=== PATIENT | female | born 1930 | race Caucasian/White ===

== ENCOUNTER 2016-11-24 15:31 | Inpatient (IN) | payer MEDICARE ==
[~2016-11-24] VITALS: Ht 157.5 cm; Wt 89.0 kg
[~2016-11-24 15:31] MED LIST: ASCO-96 PO; ASPI325T17 PO; BENA40TA2 PO; BUDE10.22 INH; CALC1CAP8 PO; CEFU500T PO; ESCI20TA PO; FLUT16SP NS; HYDR25TA6 PO; LEVO112T4 PO; MAGN400T7 PO; METH1POW PO; METH1TAB21 PO; MULT-257 PO; OMEG1CAP94 PO; ONDA4TAB13 SL; OXYC5TAB2 PO; PANT40TA5 PO; POTA20TA6 PO; POTASSIUM PO; ROPI0.5T2 PO; ROPI2TAB4 PO; SIMV20TA3 PO; SUVO10TA PEG; TIOT18CA INH; potassium PO
[2016-11-24] MEDS ORDERED: SODIUM CHLORIDE FLUSH 10ML SYR IVF ONE (16:00)
[2016-11-24 16:08] LABS: HEMATOCRIT 43.5 % (34.6-47.8); HEMOGLOBIN 14.7 g/dL (11.7-16.4); WHITE BLOOD COUNT 8.8 x10^3/uL (3.4-10)
[2016-11-24 16:19] LABS: ASPARTATE AMINO TRANSFERASE 17 U/L (15-37); BLOOD UREA NITROGEN 19 mg/dL (7-18)
[2016-11-24 16:24] LABS: IS PT STATUS REG ER OR PRE ER? YES
[2016-11-24] MEDS ORDERED: ASPI-496 PO (16:50)
[2016-11-24] MEDS ORDERED: NITROGLYCERIN 0.4 MG/SPRAY SL PRN (17:00)
[2016-11-24] MEDS ORDERED: NITROGLYCERIN 0.4 MG BOTTLE (25 TABS) SL PRN (17:00)
[2016-11-24] MEDS ORDERED: MECLIZINE CHEWABLE 25 MG TAB PO PRN (17:30)
[2016-11-24] MEDS ORDERED: SODIUM CHLORIDE 0.9% 1,000 ML IV SCH (17:30)
[2016-11-24] MEDS ORDERED: MORPHINE SULFATE 4 MG/ML, 1ML IVPush PRN (17:30)
[2016-11-24] MEDS ORDERED: ONDANSETRON ODT 4 MG PO PRN (17:30)
[2016-11-24] MEDS ORDERED: ONDANSETRON 2MG/ML, 2ML IVPush PRN (17:30)
[2016-11-24 18:45] VITALS: BP 160/80
[2016-11-24] MEDS ORDERED: FLUTICASONE/VILANTEROL 100-25MCG/INH INH SCH (21:00)
[2016-11-24] MEDS ORDERED: ROPINIROLE 1MG TABLET PO SCH (21:00)
[2016-11-24] MEDS ORDERED: SIMVASTATIN 20 MG TABLET PO SCH (21:00)
[2016-11-24] MEDS ORDERED: BELSOMRA 10 MG PO PRN (21:30)
[2016-11-24] MEDS: CALCIUM/VITAMIN D3 250-125 TABLET PO SCH (22:27)
[2016-11-24] MEDS: MAGNESIUM OXIDE 400 MG TABLET PO SCH (22:27)
[2016-11-24] MEDS: ASCORBIC ACID 500 MG TABLET PO SCH (22:28)
[2016-11-25 01:09] VITALS: BP 127/74
[2016-11-25] MEDS ORDERED: ASPIRIN 81 MG TABLET EC PO SCH (06:00)
[2016-11-25 06:03] LABS: HEMOGLOBIN 13.4 g/dL (11.7-16.4); WHITE BLOOD COUNT 6.7 x10^3/uL (3.4-10)
[2016-11-25 06:15] LABS: ASPARTATE AMINO TRANSFERASE 15 U/L (15-37); BLOOD UREA NITROGEN 19 mg/dL (7-18)
[2016-11-25] MEDS: MAGNESIUM OXIDE 400 MG TABLET PO SCH (08:37)
[2016-11-25] MEDS: ASCORBIC ACID 500 MG TABLET PO SCH (08:37)
[2016-11-25 08:38] LABS: IS PT STATUS REG ER OR PRE ER? NO
[2016-11-25] MEDS: CALCIUM/VITAMIN D3 250-125 TABLET PO SCH (08:38)
[2016-11-25 08:46] VITALS: BP 185/76
[2016-11-25] MEDS ORDERED: METHENAMINE HIPPURATE 1 GM TABLET PO SCH (09:00)
[2016-11-25] MEDS ORDERED: MULTIVITAMIN 1 TABLET PO SCH (09:00)
[2016-11-25] MEDS ORDERED: LEVOTHYROXINE 112 MCG TABLET PO SCH (09:00)
[2016-11-25] MEDS ORDERED: BENAZEPRIL 20 MG TABLET PO SCH (09:00)
[2016-11-25] MEDS ORDERED: CITALOPRAM 20 MG TABLET PO SCH (09:00)
[2016-11-25] MEDS ORDERED: REGADENOSON 0.4 MG/5 ML SYRINGE ONE (10:07)
[2016-11-25 14:50] VITALS: BP 167/79
[2016-11-25] MEDS ORDERED: LEVO100T PO (15:49)
== END 2016-11-25 18:00 | disposition home or self-care (01) | DRG 313 ==
LOC: ED 16:26 → EDIP 16:27 → ED 17:31 → 5SO 18:54
PROVIDERS: ADMIT Internal Medicine; ATTEND Internal Medicine
DX: R07.89 Other chest pain (principal); I25.10 Atherosclerotic heart disease of native coronary artery without angina pectoris; I50.22 Chronic systolic (congestive) heart failure; I11.0 Hypertensive heart disease with heart failure; N39.0 Urinary tract infection, site not specified; J98.11 Atelectasis; I44.7 Left bundle-branch block, unspecified; J44.9 Chronic obstructive pulmonary disease, unspecified; F32.9 Major depressive disorder, single episode, unspecified; E03.9 Hypothyroidism, unspecified; G47.33 Obstructive sleep apnea (adult) (pediatric); E78.5 Hyperlipidemia, unspecified; F41.9 Anxiety disorder, unspecified; G25.81 Restless legs syndrome; G47.00 Insomnia, unspecified; M19.90 Unspecified osteoarthritis, unspecified site; Z82.3 Family history of stroke; Z96.653 Presence of artificial knee joint, bilateral; Z90.49 Acquired absence of other specified parts of digestive tract; Z90.710 Acquired absence of both cervix and uterus; Z88.2 Allergy status to sulfonamides; Z88.1 Allergy status to other antibiotic agents; Z88.8 Allergy status to other drugs, medicaments and biological substances; Z91.018 Allergy to other foods
CPT/HCPCS: 36415; 70450; 71010; 78452; 80053; 80061; 81001; 83036; 83690; 83735; 84100; 84443; 84484; 85025; 85610; 87086; 93005; 93017; 93306; 99285; J2785; A9502; C9898; J7030

== ENCOUNTER 2016-12-10 09:25 | Observation (INO) | payer MEDICARE ==
[~2016-12-10] VITALS: Ht 157.5 cm; Wt 90.2 kg
[~2016-12-10 09:25] MED LIST changes: +ASPI-496 PO; +LEVO100T PO
[2016-12-10] MEDS ORDERED: SODIUM CHLORIDE 0.9% 1,000 ML IV SCH (09:58)
[2016-12-10] MEDS ORDERED: BISACODYL 5 MG EC TABLET PO PRN ×2 (10:00→10:30)
[2016-12-10] MEDS ORDERED: BISACODYL 10 MG SUPP PR PRN ×2 (10:00→13:30)
[2016-12-10] MEDS ORDERED: ONDANSETRON 2MG/ML, 2ML IVPush PRN (10:00)
[2016-12-10] MEDS ORDERED: ASPIRIN 325 MG TABLET EC PO ONE (10:00)
[2016-12-10] MEDS ORDERED: ZOLPIDEM 5MG TABLET PO PRN (10:00)
[2016-12-10] MEDS ORDERED: ACETAMINOPHEN 325 MG TABLET PO PRN (10:00)
[2016-12-10 10:01] VITALS: BP 145/72
[2016-12-10] MEDS ORDERED: VIT1CAPS42 PO (10:24)
[2016-12-10] MEDS ORDERED: OMEG1CAP23 PO (10:24)
[2016-12-10] MEDS ORDERED: LIDOCAINE 2%, 20ML ONE ×2 (10:39→10:54)
[2016-12-10] MEDS ORDERED: MIDAZOLAM 1 MG/ML, 5ML ONE ×3 (10:39→12:46)
[2016-12-10] MEDS ORDERED: FENTANYL PF 100 MCG/2ML ONE ×3 (10:39→12:46)
[2016-12-10] MEDS ORDERED: ADENOSINE 90 MG/30 ML ONE (12:23)
[2016-12-10] MEDS ORDERED: HEPARIN 1,000 UNITS/ML, 10ML ONE (12:31)
[2016-12-10] MEDS ORDERED: BIVALIRUDIN 250 MG ONE ×2 (12:40→13:20)
[2016-12-10] MEDS ORDERED: TICAGRELOR 90 MG TABLET ONE (12:58)
[2016-12-10] MEDS ORDERED: BIVALIRUDIN 250 MG in DEXTROSE 5% 50 ML IV SCH (13:00)
[2016-12-10] MEDS ORDERED: ASPIRIN 325 MG TABLET EC ONE (13:08)
[2016-12-10] MEDS: SODIUM CHLORIDE 0.9% 1,000 ML IV SCH ×2 (13:11→20:18)
[2016-12-10] MEDS ORDERED: ROPINIROLE 0.5MG TABLET PO SCH (13:30)
[2016-12-10 18:07] VITALS: BP 146/89
[2016-12-10 18:46] VITALS: BP 148/65
[2016-12-10 19:41] LABS: IS PT STATUS REG ER OR PRE ER? NO
[2016-12-10] MEDS: TEMPLATE NON-FORMULARY MED. (Budesonide/Formoterol Fumarate (Symbicort 80-4.5 Mcg Inhaler) INH SCH (21:00)
[2016-12-10] MEDS ORDERED: SIMVASTATIN 20 MG TABLET PO SCH (21:00)
[2016-12-10] MEDS: FLUTICASONE NASAL SPRAY 16GM NAS SCH (21:48)
[2016-12-10] MEDS: MULTIVITAMINS/MINERALS TABLET PO SCH (21:49)
[2016-12-10] MEDS: CALCIUM/VITAMIN D3 250-125 TABLET PO SCH (21:49)
[2016-12-10] MEDS: MAGNESIUM OXIDE 400 MG TABLET PO SCH (21:49)
[2016-12-10] MEDS: ZOLPIDEM 5MG TABLET PO PRN ×2 (22:08→23:00)
[2016-12-10] MEDS ORDERED: BELSOMRA HOMEMEDPO SCH (23:00)
[2016-12-10] MEDS ORDERED: ROPINIROLE 1MG TABLET PO SCH (23:00)
[2016-12-11 00:37] VITALS: BP 97/60
[2016-12-11] MEDS: SODIUM CHLORIDE 0.9% 1,000 ML IV SCH (02:15)
[2016-12-11 05:58] LABS: BLOOD UREA NITROGEN 25 mg/dL (7-18)
[2016-12-11] MEDS ORDERED: LEVOTHYROXINE 100 MCG TABLET PO SCH (06:00)
[2016-12-11] MEDS ORDERED: ASPIRIN 81 MG TABLET EC PO SCH (06:00)
[2016-12-11 07:38] VITALS: BP 129/70
[2016-12-11] MEDS: MAGNESIUM OXIDE 400 MG TABLET PO SCH (08:04)
[2016-12-11] MEDS: CALCIUM/VITAMIN D3 250-125 TABLET PO SCH (08:04)
[2016-12-11] MEDS: MULTIVITAMINS/MINERALS TABLET PO SCH (08:04)
[2016-12-11] MEDS: TEMPLATE NON-FORMULARY MED. (Budesonide/Formoterol Fumarate (Symbicort 80-4.5 Mcg Inhaler) INH SCH (08:11)
[2016-12-11] MEDS: FLUTICASONE NASAL SPRAY 16GM NAS SCH (08:11)
[2016-12-11] MEDS ORDERED: OMEGA-3/FISH OIL CAPSULE PO SCH (09:00)
[2016-12-11] MEDS ORDERED: POTASSIUM CHLORIDE 20 MEQ TAB.ER.PRT PO SCH ×2 (09:00)
[2016-12-11] MEDS ORDERED: METHENAMINE HIPPURATE 1 GM TABLET PO SCH (09:00)
[2016-12-11] MEDS ORDERED: CITALOPRAM 20 MG TABLET PO SCH (09:00)
[2016-12-11] MEDS ORDERED: BENAZEPRIL 20 MG TABLET PO SCH (09:00)
[2016-12-11] MEDS ORDERED: HYDROCHLOROTHIAZIDE 25 MG TABLET PO SCH (09:00)
[2016-12-11] MEDS ORDERED: CLOPIDOGREL 300 MG TABLET PO ONE ×2 (09:30→11:00)
[2016-12-11] MEDS ORDERED: CLOP75TA PO (09:41)
[2016-12-11] MEDS ORDERED: CLOPIDOGREL 300 MG TABLET ONE (11:15)
== END 2016-12-11 12:15 | disposition home or self-care (01) ==
LOC: CACL 09:25 → ORIP 13:11 → 5SO 14:04 → DCLOUNGE 12-11 11:55
PROVIDERS: ADMIT Internal Medicine Cardiovascular Disease; ATTEND Internal Medicine Cardiovascular Disease
DX: I20.9 Angina pectoris, unspecified (principal); E78.5 Hyperlipidemia, unspecified; I10 Essential (primary) hypertension; E03.9 Hypothyroidism, unspecified; G47.30 Sleep apnea, unspecified
CPT/HCPCS: 36415; 80048; 82040; 84484; 85018; 93005; 93458; 93571; 99156; 99157; C1725; C1760; C1769; C1874; C1887; C1894; C9600; G0378; J0153; J0583; J1644; J2250; J3010; J3490; Q9967

== ENCOUNTER 2016-12-23 03:21 | Inpatient (IN) | payer MEDICARE ==
[~2016-12-23] VITALS: Ht 157.5 cm; Wt 86.4 kg
[2016-12-23] VITALS (7 sets, daily range): BP systolic 84–128; BP diastolic 51–74
[~2016-12-23 03:21] MED LIST changes: +CLOP75TA PO; +OMEG1CAP23 PO; +VIT1CAPS42 PO
[2016-12-23 04:00] LABS: HEMATOCRIT 43.6 % (34.6-47.8); HEMOGLOBIN 14.7 g/dL (11.7-16.4); WHITE BLOOD COUNT 8.3 x10^3/uL (3.4-10)
[2016-12-23] MEDS ORDERED: SODIUM CHLORIDE FLUSH 10ML SYR IVF ONE (04:00)
[2016-12-23 04:09] LABS: BLOOD UREA NITROGEN 25 mg/dL (7-18)
[2016-12-23 04:18] LABS: IS PT STATUS REG ER OR PRE ER? YES
[2016-12-23] MEDS ORDERED: NITROGLYCERIN 0.4 MG BOTTLE (25 TABS) SL PRN ×2 (06:30→08:00)
[2016-12-23] MEDS ORDERED: NITROGLYCERIN 0.4 MG/SPRAY SL PRN (06:30)
[2016-12-23] MEDS ORDERED: SODIUM CHLORIDE 0.9%, 500ML IVBOLUS ONE (07:30)
[2016-12-23] MEDS ORDERED: POLYETHYLENE GLYCOL 17 GM PACKET PO PRN (08:00)
[2016-12-23] MEDS ORDERED: ENALAPRILAT 1.25 MG/ML, 2ML IVPush PRN (08:00)
[2016-12-23] MEDS ORDERED: ACETAMINOPHEN 325 MG TABLET PO PRN (08:00)
[2016-12-23] MEDS ORDERED: ONDANSETRON 2MG/ML, 2ML IVPush PRN (08:00)
[2016-12-23] MEDS ORDERED: DOCUSATE 100 MG CAPSULE PO PRN (08:00)
[2016-12-23] MEDS ORDERED: BISACODYL 10 MG SUPP PR PRN (08:00)
[2016-12-23] MEDS ORDERED: HYDROcodone/APAP 5/325 TABLET PO PRN (08:00)
[2016-12-23] MEDS: ENOXAPARIN 40 MG/0.4 ML SQ SCH (08:57)
[2016-12-23] MEDS: CITALOPRAM 20 MG TABLET PO SCH (08:58)
[2016-12-23] MEDS: CALCIUM/VITAMIN D3 250-125 TABLET PO SCH ×2 (08:58→19:44)
[2016-12-23] MEDS: MAGNESIUM OXIDE 400 MG TABLET PO SCH ×2 (08:58→19:43)
[2016-12-23] MEDS: SODIUM CHLORIDE FLUSH 10ML SYR IVF SCH ×2 (08:58→19:43)
[2016-12-23] MEDS: HYDROCHLOROTHIAZIDE 25 MG TABLET PO SCH (08:58)
[2016-12-23] MEDS: CLOPIDOGREL 75 MG TABLET PO SCH (08:58)
[2016-12-23] MEDS: BENAZEPRIL 20 MG TABLET PO SCH (08:58)
[2016-12-23] MEDS: POTASSIUM CHLORIDE 20 MEQ TAB.ER.PRT PO SCH (08:58)
[2016-12-23] MEDS ORDERED: FLUTICASONE NASAL SPRAY 16GM NAS SCH ×2 (09:00→21:00)
[2016-12-23] MEDS ORDERED: SUVOREXANT 10 MG PEG SCH (09:00)
[2016-12-23 10:02] LABS: IS PT STATUS REG ER OR PRE ER? NO
[2016-12-23] MEDS: OMEGA-3/FISH OIL CAPSULE PO SCH (11:27)
[2016-12-23] MEDS: ROPINIROLE 0.5MG TABLET PO SCH (11:27)
[2016-12-23] MEDS: MULTIVITAMINS/MINERALS TABLET PO SCH ×2 (11:27→19:43)
[2016-12-23] MEDS: morphine SULFATE 10 MG/ML, 1ML IVPush PRN (13:02)
[2016-12-23] MEDS: METHENAMINE HIPPURATE 1 GM TABLET PO SCH (13:02)
[2016-12-23 15:55] LABS: IS PT STATUS REG ER OR PRE ER? NO
[2016-12-23] MEDS ORDERED: ROPINIROLE 0.5MG TABLET PO SCH (21:00)
[2016-12-23] MEDS ORDERED: SIMVASTATIN 20 MG TABLET PO SCH (21:00)
[2016-12-23] MEDS ORDERED: SUVOREXANT 10 MG PO SCH (21:00)
[2016-12-24 01:45] VITALS: BP 144/80
[2016-12-24] MEDS: morphine SULFATE 10 MG/ML, 1ML IVPush PRN (05:23)
[2016-12-24] MEDS ORDERED: LEVOTHYROXINE 100 MCG TABLET PO SCH (06:00)
[2016-12-24] MEDS ORDERED: ASPIRIN 325 MG TABLET EC PO SCH (06:00)
[2016-12-24 07:08] VITALS: BP 112/69
[2016-12-24 07:10] VITALS: BP_SYST 112; BP_SYST 154; BP_DIAS 69; BP_DIAS 92
[2016-12-24] MEDS ORDERED: REGADENOSON 0.4 MG/5 ML SYRINGE ONE (08:36)
[2016-12-24] MEDS: SODIUM CHLORIDE FLUSH 10ML SYR IVF SCH (09:00)
[2016-12-24] MEDS: ROPINIROLE 0.5MG TABLET PO SCH (11:40)
[2016-12-24] MEDS: HYDROCHLOROTHIAZIDE 25 MG TABLET PO SCH (11:40)
[2016-12-24] MEDS: MULTIVITAMINS/MINERALS TABLET PO SCH (11:40)
[2016-12-24] MEDS: CLOPIDOGREL 75 MG TABLET PO SCH (11:40)
[2016-12-24] MEDS: MAGNESIUM OXIDE 400 MG TABLET PO SCH (11:40)
[2016-12-24] MEDS: CALCIUM/VITAMIN D3 250-125 TABLET PO SCH (11:41)
[2016-12-24] MEDS: BENAZEPRIL 20 MG TABLET PO SCH (11:41)
[2016-12-24] MEDS: POTASSIUM CHLORIDE 20 MEQ TAB.ER.PRT PO SCH (11:41)
[2016-12-24] MEDS: CITALOPRAM 20 MG TABLET PO SCH (11:41)
[2016-12-24] MEDS: OMEGA-3/FISH OIL CAPSULE PO SCH (11:42)
[2016-12-24] MEDS: METHENAMINE HIPPURATE 1 GM TABLET PO SCH (11:42)
[2016-12-24] MEDS: ENOXAPARIN 40 MG/0.4 ML SQ SCH (11:42)
[2016-12-24 14:30] VITALS: BP 110/58
== END 2016-12-24 16:55 | disposition home or self-care (01) | DRG 313 ==
LOC: ED 03:33 → EDIP 04:49 → 5SO 05:31 → DCLOUNGE 12-24 16:20
PROVIDERS: ADMIT Hospitalist; ATTEND Hospitalist
DX: R07.9 Chest pain, unspecified (principal); I25.10 Atherosclerotic heart disease of native coronary artery without angina pectoris; I44.7 Left bundle-branch block, unspecified; I11.9 Hypertensive heart disease without heart failure; J44.9 Chronic obstructive pulmonary disease, unspecified; E03.9 Hypothyroidism, unspecified; E78.5 Hyperlipidemia, unspecified; G25.81 Restless legs syndrome; G47.33 Obstructive sleep apnea (adult) (pediatric); K21.9 Gastro-esophageal reflux disease without esophagitis; Z82.49 Family history of ischemic heart disease and other diseases of the circulatory system; Z87.440 Personal history of urinary (tract) infections; Z95.5 Presence of coronary angioplasty implant and graft; Z90.49 Acquired absence of other specified parts of digestive tract; Z90.710 Acquired absence of both cervix and uterus; F32.9 Major depressive disorder, single episode, unspecified; F41.9 Anxiety disorder, unspecified; G47.00 Insomnia, unspecified; M19.90 Unspecified osteoarthritis, unspecified site
CPT/HCPCS: 36415; 71010; 78452; 80048; 82040; 84484; 85025; 93005; 93017; 99285; J1650; J2785; A9502; C9898; J2270; J7040

== ENCOUNTER → 2016-12-31 | Outpatient (CLI) | payer MEDICARE | END | disposition home or self-care (01) | LOC: CVU 08:39 | PROVIDERS: ATTEND Internal Medicine Cardiovascular Disease | DX: I08.3 Combined rheumatic disorders of mitral, aortic and tricuspid valves (principal) | CPT/HCPCS: 93306 ==

== ENCOUNTER → 2017-01-22 | Outpatient (CLI) | payer MEDICARE ==
[2017-01-22 17:07] LABS: HEMATOCRIT 41.9 % (34.6-47.8); HEMOGLOBIN 14.2 g/dL (11.7-16.4); WHITE BLOOD COUNT 9.6 x10^3/uL (3.4-10)
== END | disposition home or self-care (01) ==
LOC: LAB 16:30
PROVIDERS: ATTEND Physician Assistant
DX: I10 Essential (primary) hypertension (principal); E03.9 Hypothyroidism, unspecified; E78.5 Hyperlipidemia, unspecified; G25.81 Restless legs syndrome
CPT/HCPCS: 36415; 85025

== ENCOUNTER 2017-02-09 13:55 | Emergency (ER) | payer MEDICARE ==
[~2017-02-09] VITALS: Ht 157.5 cm; Wt 85.0 kg
[2017-02-09] MEDS ORDERED: PANT40TA5 PO (14:34)
[2017-02-09] MEDS ORDERED: RANO10002 PO (14:34)
[2017-02-09] MEDS ORDERED: AMLO5TAB2 PO (14:34)
[2017-02-09] MEDS ORDERED: SODIUM CHLORIDE 0.9% 1,000 ML IV ONE (14:48)
[2017-02-09] MEDS ORDERED: ONDANSETRON 2MG/ML, 2ML IVPush ONE (15:00)
[2017-02-09] MEDS ORDERED: SODIUM CHLORIDE FLUSH 10ML SYR IVF ONE (15:00)
[2017-02-09] MEDS ORDERED: MORPHINE SULFATE 4 MG/ML, 1ML IVPush PRN (15:00)
[2017-02-09 15:18] LABS: HEMATOCRIT 40.8 % (34.6-47.8); HEMOGLOBIN 13.8 g/dL (11.7-16.4); WHITE BLOOD COUNT 7.2 x10^3/uL (3.4-10)
[2017-02-09] MEDS ORDERED: morphine SULFATE 10 MG/ML, 1ML ONE (15:23)
[2017-02-09] MEDS ORDERED: ONDANSETRON 2MG/ML, 2ML ONE (15:23)
[2017-02-09 15:29] LABS: ASPARTATE AMINO TRANSFERASE 17 U/L (15-37); BLOOD UREA NITROGEN 26 mg/dL (7-18)
[2017-02-09 17:19] VITALS: BP 103/52
== END 2017-02-09 17:37 | disposition home or self-care (01) ==
LOC: ED 17:05
DX: J15.9 Unspecified bacterial pneumonia (principal); R07.89 Other chest pain; J44.9 Chronic obstructive pulmonary disease, unspecified; E03.9 Hypothyroidism, unspecified; E78.5 Hyperlipidemia, unspecified; I10 Essential (primary) hypertension; I25.10 Atherosclerotic heart disease of native coronary artery without angina pectoris; K21.9 Gastro-esophageal reflux disease without esophagitis; Z90.49 Acquired absence of other specified parts of digestive tract; Z90.710 Acquired absence of both cervix and uterus; Z88.2 Allergy status to sulfonamides; Z88.1 Allergy status to other antibiotic agents; Z88.8 Allergy status to other drugs, medicaments and biological substances
CPT/HCPCS: 36415; 71010; 80053; 83880; 84484; 85025; 85379; 85610; 85730; 93005; 96361; 96374; 96375; 99285; J2405; J7030

== ENCOUNTER → 2017-03-17 | Outpatient (CLI) | payer MEDICARE ==
[~2017-03-17] MED LIST changes: +AMLO5TAB2 PO; +RANO10002 PO
== END | disposition home or self-care (01) ==
LOC: CFH 12:13
PROVIDERS: ATTEND Internal Medicine
DX: J18.9 Pneumonia, unspecified organism (principal); I70.0 Atherosclerosis of aorta
CPT/HCPCS: 71046

== ENCOUNTER 2017-06-19 10:04 | Inpatient (IN) | payer MEDICARE ==
[~2017-06-19] VITALS: Ht 157.5 cm; Wt 88.8 kg
[2017-06-19] MEDS ORDERED: SODIUM CHLORIDE FLUSH 10ML SYR IVF ONE (11:00)
[2017-06-19] MEDS ORDERED: NITROGLYCERIN SINGLE TAB 0.4 MG SL PRN (11:00)
[2017-06-19] MEDS ORDERED: NITROGLYCERIN SINGLE TAB 0.4 MG SL ONE ×2 (11:00→11:58)
[2017-06-19 11:52] LABS: BASOPHILS # (AUTO) 0.03 x10^3/uL (0-0.1); BASOPHILS % (AUTO) 1 % (0-1); EOSINOPHILS # (AUTO) 0.12 x10^3/uL (0-0.4); EOSINOPHILS % (AUTO) 2 % (1-7); LYMPHOCYTES # (AUTO) 1.11 x10^3/uL (1-3.4); LYMPHOCYTES % (AUTO) 19 % (22-44); MD NO; MEAN CORPUSCULAR HEMOGLOBIN 31.6 pg (27.0-34.8); MEAN CORPUSCULAR VOLUME 93.1 fL (80-100); MEAN PLATELET VOLUME 7.5 fL (7.4-10.4); MONOCYTES # (AUTO) 0.56 x10^3/uL (0.2-0.8); MONOCYTES % (AUTO) 10 % (2-9); NEUTROPHILS # (AUTO) 3.97 x10^3/uL (1.8-6.8); NEUTROPHILS % (AUTO) 69 % (42-75); PLATELET COUNT 334 x10^3/uL (130-400); RED BLOOD COUNT 4.26 x10^6/uL (3.82-5.3); RED CELL DISTRIBUTION WIDTH 13.6 % (9.6-15.2)
[2017-06-19 12:01] LABS: INTERNATIONAL NORMALIZED RATIO 0.98 (0.93-1.1); PROTHROMBIN TIME 10.1 Seconds (9.6-11.5)
[2017-06-19 12:04] LABS: ANION GAP 5 mmol/L (5-15); CALCIUM 8.6 mg/dL (8.5-10.1); CHLORIDE 105 mmol/L (98-107); CREATININE 0.84 mg/dL (0.55-1.02)
[2017-06-19 12:05] LABS: ALANINE AMINOTRANSFERASE 16 U/L (12-78); ALBUMIN 3.6 g/dL (3.4-5.0)
[2017-06-19 12:09] LABS: ALKALINE PHOSPHATASE 74 U/L (45-117); BILIRUBIN,TOTAL 0.5 mg/dL (0.2-1.0); TROPONIN I < 0.015 ng/mL (0.000-0.045)
[2017-06-19] MEDS ORDERED: SODIUM CHLORIDE FLUSH 10ML SYR IVF PRN (13:00)
[2017-06-19] MEDS ORDERED: morphine SULFATE 10 MG/ML, 1ML IVPush PRN (13:30)
[2017-06-19] MEDS ORDERED: ACETAMINOPHEN 325 MG TABLET PO PRN (13:30)
[2017-06-19] MEDS ORDERED: ONDANSETRON ODT 4 MG PO PRN (13:30)
[2017-06-19] MEDS ORDERED: BISACODYL 10 MG SUPP PR PRN (13:30)
[2017-06-19] MEDS ORDERED: ENOXAPARIN 40 MG/0.4 ML SQ SCH (13:30)
[2017-06-19] MEDS ORDERED: MAALOX/HYOSCYAMINE/LIDOCAINE 45 ML BTL PO ONE (13:30)
[2017-06-19 14:04] LABS: TROPONIN I < 0.015 ng/mL (0.000-0.045)
[2017-06-19] MEDS ORDERED: MAALOX/HYOSCYAMINE/LIDOCAINE 45 ML BTL ONE (14:25)
[2017-06-19] MEDS ORDERED: ENOXAPARIN 40 MG/0.4 ML ONE (14:25)
[2017-06-19 15:19] VITALS: BP 136/72
[2017-06-19] MEDS: SODIUM CHLORIDE 0.9% 1,000 ML IV SCH (15:25)
[2017-06-19 17:55] VITALS: BP 91/51
[2017-06-19] MEDS: CARVEDILOL 3.125 MG TABLET PO SCH (17:56)
[2017-06-19 19:43] LABS: TROPONIN I < 0.015 ng/mL (0.000-0.045)
[2017-06-19 20:39] VITALS: BP 118/65
[2017-06-19] MEDS ORDERED: FLUTICASONE NASAL SPRAY 16GM NAS SCH (21:00)
[2017-06-19] MEDS ORDERED: ROPINIROLE 1MG TABLET PO SCH (21:00)
[2017-06-19] MEDS ORDERED: SIMVASTATIN 20 MG TABLET PO SCH (21:00)
[2017-06-19] MEDS: MAGNESIUM OXIDE 400 MG TABLET PO SCH (21:44)
[2017-06-19] MEDS: CALCIUM CARBONATE 500 MG TABLET PO SCH (21:44)
[2017-06-20 00:57] VITALS: BP 112/69
[2017-06-20 05:53] LABS: CHLORIDE 103 mmol/L (98-107)
[2017-06-20 05:57] LABS: ANION GAP 4 mmol/L (5-15); CALCIUM 8.8 mg/dL (8.5-10.1); CREATININE 0.78 mg/dL (0.55-1.02)
[2017-06-20] MEDS: CARVEDILOL 3.125 MG TABLET PO SCH (05:57)
[2017-06-20] MEDS ORDERED: LEVOTHYROXINE 100 MCG TABLET PO SCH (06:00)
[2017-06-20] MEDS: SODIUM CHLORIDE 0.9% 1,000 ML IV SCH (06:39)
[2017-06-20 07:19] VITALS: BP 117/69
[2017-06-20] MEDS: MAGNESIUM OXIDE 400 MG TABLET PO SCH (08:39)
[2017-06-20] MEDS: CALCIUM CARBONATE 500 MG TABLET PO SCH (08:39)
[2017-06-20] MEDS ORDERED: BENAZEPRIL 20 MG TABLET PO SCH (09:00)
[2017-06-20] MEDS ORDERED: CLOPIDOGREL 75 MG TABLET PO SCH (09:00)
[2017-06-20] MEDS ORDERED: ROPINIROLE 0.5MG TABLET PO SCH (09:00)
[2017-06-20] MEDS ORDERED: (Escitalopram Oxalate** 20 MG) HOMEMEDPO SCH (09:00)
[2017-06-20] MEDS ORDERED: RANOLAZINE 500 MG TAB.ER.12H PO SCH (09:00)
[2017-06-20] MEDS ORDERED: METHENAMINE HIPPURATE 1 GM TABLET PO SCH (09:00)
[2017-06-20] MEDS ORDERED: MULTIVITAMINS/MINERALS TABLET PO SCH (09:00)
[2017-06-20] MEDS ORDERED: PANTOPROZOLE 40MG TABLET PO SCH (09:00)
[2017-06-20] MEDS ORDERED: FLUTICASONE/VILANTEROL 100-25MCG/INH INH SCH (09:00)
[2017-06-20] MEDS ORDERED: OMEGA-3/FISH OIL CAPSULE PO SCH (09:00)
[2017-06-20] MEDS ORDERED: NITR0.4T SL (11:31)
[2017-06-20] MEDS ORDERED: CARV3.1212 PO (11:31)
[2017-06-20] MEDS ORDERED: ISOS30TA8 PO (11:33)
[2017-06-20 12:42] VITALS: BP 136/76
== END 2017-06-20 13:37 | disposition home or self-care (01) | DRG 303 ==
LOC: ED 12:32 → EDIP 12:33 → ED 12:47 → 5SO 15:15
PROVIDERS: ADMIT Hospitalist; ATTEND Hospitalist
DX: I25.119 Atherosclerotic heart disease of native coronary artery with unspecified angina pectoris (principal); J44.9 Chronic obstructive pulmonary disease, unspecified; G47.30 Sleep apnea, unspecified; I10 Essential (primary) hypertension; R79.89 Other specified abnormal findings of blood chemistry; E03.9 Hypothyroidism, unspecified; E78.5 Hyperlipidemia, unspecified; E87.6 Hypokalemia; G25.81 Restless legs syndrome; G47.33 Obstructive sleep apnea (adult) (pediatric); K21.9 Gastro-esophageal reflux disease without esophagitis; K44.9 Diaphragmatic hernia without obstruction or gangrene; Z90.710 Acquired absence of both cervix and uterus; Z95.5 Presence of coronary angioplasty implant and graft; Z96.653 Presence of artificial knee joint, bilateral; Z88.2 Allergy status to sulfonamides; Z88.8 Allergy status to other drugs, medicaments and biological substances
CPT/HCPCS: 36415; 71045; 80048; 80053; 83880; 84484; 85025; 85610; 85730; 93005; J1650; J7030

== ENCOUNTER → 2017-09-20 | Outpatient (CLI) | payer MEDICARE ==
[~2017-09-20] MED LIST changes: +CARV3.1212 PO; +ISOS30TA8 PO; +NITR0.4T SL
== END | disposition home or self-care (01) ==
LOC: CFH 14:48
PROVIDERS: ATTEND Internal Medicine Cardiovascular Disease
DX: I08.3 Combined rheumatic disorders of mitral, aortic and tricuspid valves (principal); I10 Essential (primary) hypertension; E78.5 Hyperlipidemia, unspecified
CPT/HCPCS: 93306

== ENCOUNTER 2017-12-14 15:07 | Emergency (ER) | payer MEDICARE ==
[~2017-12-14] VITALS: Ht 157.5 cm; Wt 88.7 kg
[~2017-12-14 15:07] MED LIST changes: -AMLO5TAB2 PO; +AMLO5TAB7 PO; -BENA40TA2 PO; +BENA40TA3 PO
[2017-12-14] MEDS ORDERED: ASPIRIN 325 MG TABLET PO ONE (15:30)
[2017-12-14] MEDS ORDERED: SODIUM CHLORIDE FLUSH 10ML SYR IVF ONE ×2 (15:30→16:00)
[2017-12-14] MEDS ORDERED: SODIUM CHLORIDE 0.9% 1,000ML IVBOLUS ONE (16:00)
[2017-12-14] MEDS ORDERED: ASPIRIN 325 MG TABLET ONE (16:05)
[2017-12-14 16:11] LABS: BASOPHILS # (AUTO) 0.03 x10^3/uL (0-0.1); BASOPHILS % (AUTO) 0 % (0-1); EOSINOPHILS % (AUTO) 2 % (1-7); LYMPHOCYTES # (AUTO) 1.13 x10^3/uL (1-3.4); LYMPHOCYTES % (AUTO) 12 % (22-44); MD NO; MEAN CORPUSCULAR HEMOGLOBIN 31.9 pg (27.0-34.8); MEAN CORPUSCULAR HGB CONC 33.5 g/dL (32.4-35.8); MEAN CORPUSCULAR VOLUME 95.1 fL (80-100); MEAN PLATELET VOLUME 7.5 fL (7.4-10.4); MONOCYTES # (AUTO) 0.99 x10^3/uL (0.2-0.8); MONOCYTES % (AUTO) 11 % (2-9); NEUTROPHILS # (AUTO) 6.84 x10^3/uL (1.8-6.8); NEUTROPHILS % (AUTO) 75 % (42-75); PLATELET COUNT 414 x10^3/uL (130-400); RED BLOOD COUNT 3.91 x10^6/uL (3.82-5.3); RED CELL DISTRIBUTION WIDTH 13.7 % (9.6-15.2)
[2017-12-14 16:18] LABS: ALANINE AMINOTRANSFERASE 14 U/L (12-78); ALBUMIN 3.2 g/dL (3.4-5.0); ANION GAP 6 mmol/L (5-15); CALCIUM 8.6 mg/dL (8.5-10.1); CHLORIDE 101 mmol/L (98-107); CREATININE 1.03 mg/dL (0.55-1.02)
[2017-12-14 16:23] LABS: ALKALINE PHOSPHATASE 74 U/L (45-117); BILIRUBIN,TOTAL 0.6 mg/dL (0.2-1.0); TOTAL PROTEIN 7.2 g/dL (6.4-8.2); TROPONIN I < 0.015 ng/mL (0.000-0.045)
[2017-12-14] MEDS ORDERED: MECLIZINE CHEWABLE 25 MG TAB ONE (17:56)
[2017-12-14] MEDS ORDERED: MECLIZINE CHEWABLE 25 MG TAB PO ONE (18:00)
[2017-12-14 18:46] VITALS: BP 133/88
== END 2017-12-14 18:57 | disposition home or self-care (01) ==
LOC: ED 18:51
DX: R55 Syncope and collapse (principal); I25.10 Atherosclerotic heart disease of native coronary artery without angina pectoris; K21.9 Gastro-esophageal reflux disease without esophagitis; E78.5 Hyperlipidemia, unspecified; E03.9 Hypothyroidism, unspecified; J44.9 Chronic obstructive pulmonary disease, unspecified; I10 Essential (primary) hypertension; Z90.89 Acquired absence of other organs; Z90.49 Acquired absence of other specified parts of digestive tract; Z90.710 Acquired absence of both cervix and uterus; Z88.6 Allergy status to analgesic agent; Z88.1 Allergy status to other antibiotic agents; Z88.8 Allergy status to other drugs, medicaments and biological substances; Z88.2 Allergy status to sulfonamides
CPT/HCPCS: 36415; 71045; 80053; 83880; 84484; 85025; 93005; 96360; 99285; J7030

== ENCOUNTER 2017-12-17 20:20 | Observation (INO) | payer MEDICARE ==
[~2017-12-17] VITALS: Ht 157.5 cm; Wt 87.6 kg
[~2017-12-17 20:20] MED LIST changes: -CEFD300C37 PO
[2017-12-17 21:15] LABS: BASOPHILS # (AUTO) 0.02 x10^3/uL (0-0.1); BASOPHILS % (AUTO) 0 % (0-1); EOSINOPHILS # (AUTO) 0.21 x10^3/uL (0-0.4); EOSINOPHILS % (AUTO) 2 % (1-7); LYMPHOCYTES # (AUTO) 1.06 x10^3/uL (1-3.4); LYMPHOCYTES % (AUTO) 11 % (22-44); MD NO; MEAN CORPUSCULAR HEMOGLOBIN 32.1 pg (27.0-34.8); MEAN CORPUSCULAR HGB CONC 34.1 g/dL (32.4-35.8); MEAN CORPUSCULAR VOLUME 94.1 fL (80-100); MEAN PLATELET VOLUME 7.1 fL (7.4-10.4); MONOCYTES # (AUTO) 1.06 x10^3/uL (0.2-0.8); MONOCYTES % (AUTO) 11 % (2-9); NEUTROPHILS # (AUTO) 7.33 x10^3/uL (1.8-6.8); NEUTROPHILS % (AUTO) 76 % (42-75); PLATELET COUNT 424 x10^3/uL (130-400); RED BLOOD COUNT 3.76 x10^6/uL (3.82-5.3); RED CELL DISTRIBUTION WIDTH 13.7 % (9.6-15.2)
[2017-12-17 21:26] LABS: ALANINE AMINOTRANSFERASE 14 U/L (12-78); ALBUMIN 3.1 g/dL (3.4-5.0); ANION GAP 6 mmol/L (5-15); CALCIUM 8.3 mg/dL (8.5-10.1); CHLORIDE 101 mmol/L (98-107); CREATININE 1.29 mg/dL (0.55-1.02)
[2017-12-17 21:31] LABS: ALKALINE PHOSPHATASE 81 U/L (45-117); BILIRUBIN,TOTAL 0.4 mg/dL (0.2-1.0); TOTAL PROTEIN 7.2 g/dL (6.4-8.2); TROPONIN I < 0.015 ng/mL (0.000-0.045)
[2017-12-17] MEDS ORDERED: SODIUM CHLORIDE FLUSH 10ML SYR IVF ONE (22:30)
[2017-12-17] MEDS ORDERED: SODIUM CHLORIDE 0.9% 1,000 ML IV SCH (23:51)
[2017-12-18] MEDS ORDERED: NITROGLYCERIN 0.4 MG BOTTLE (25 TABS) SL PRN
[2017-12-18] MEDS ORDERED: DOCUSATE 100 MG CAPSULE PO PRN
[2017-12-18] MEDS ORDERED: morphine SULFATE 10 MG/ML, 1ML IVPush PRN
[2017-12-18] MEDS ORDERED: ONDANSETRON 2MG/ML, 2ML IVPush PRN
[2017-12-18] MEDS ORDERED: ACETAMINOPHEN 325 MG TABLET PO PRN
[2017-12-18] MEDS ORDERED: HYDROcodone/APAP 5/325 TABLET PO PRN
[2017-12-18] MEDS ORDERED: ROPINIROLE HCL PO SCH
[2017-12-18] MEDS ORDERED: POLYETHYLENE GLYCOL 17 GM PACKET PO PRN
[2017-12-18 00:56] VITALS: BP 126/76
[2017-12-18] MEDS: LEVOTHYROXINE 100 MCG TABLET PO SCH (05:36)
[2017-12-18] MEDS: ENOXAPARIN 30 MG/0.3 ML SQ SCH (05:36)
[2017-12-18] MEDS ORDERED: OMNIPAQUE 350 MG/ML, 100ML BOTTLE ONE (05:37)
[2017-12-18] MEDS: CARVEDILOL 3.125 MG TABLET PO SCH ×2 (05:37→18:00)
[2017-12-18 07:17] VITALS: BP 107/56
[2017-12-18] MEDS: TEMPLATE NON-FORMULARY MED. (Escitalopram Oxalate** 20 MG) HOMEMEDPO SCH (09:00)
[2017-12-18] MEDS ORDERED: ROPINIROLE 1MG TABLET ONE (10:50)
[2017-12-18] MEDS: ISOSORBIDE MONONITRATE ER 30 MG TABLET PO SCH (10:56)
[2017-12-18] MEDS: FAMOTIDINE 20 MG TABLET PO SCH ×2 (10:57→22:02)
[2017-12-18] MEDS: ROPINIROLE 0.5MG TABLET PO SCH ×2 (10:57→19:57)
[2017-12-18] MEDS: CLOPIDOGREL 75 MG TABLET PO SCH (10:58)
[2017-12-18] MEDS: MAGNESIUM OXIDE 400 MG TABLET PO SCH ×2 (10:58→22:02)
[2017-12-18] MEDS: BENAZEPRIL 20 MG TABLET PO SCH (10:58)
[2017-12-18] MEDS: SENNA/DOCUSATE TABLET PO SCH (10:58)
[2017-12-18] MEDS: FLUTICASONE/VILANTEROL 100-25MCG/INH INH SCH (12:52)
[2017-12-18] MEDS: RANOLAZINE 500 MG TAB.ER.12H PO SCH (12:52)
[2017-12-18 15:46] VITALS: BP 107/56
[2017-12-18 17:49] LABS: MICROSCOPIC INDICATED
[2017-12-18 17:52] LABS: CULTURE INDICATED? YES
[2017-12-18 19:46] VITALS: BP_SYST 113; BP_SYST 130; BP_SYST 131; BP_DIAS 54; BP_DIAS 72; BP_DIAS 76
[2017-12-18] MEDS: BELSOMRA 10 MG HOMEMEDPO SCH (22:00)
[2017-12-18] MEDS: SIMVASTATIN 20 MG TABLET PO SCH (22:02)
[2017-12-18] MEDS: FLUTICASONE NASAL SPRAY 16GM NAS SCH ×2 (22:02)
[2017-12-19] VITALS (9 sets, daily range): BP systolic 91–149; BP diastolic 53–76
[2017-12-19 05:49] LABS: BASOPHILS # (AUTO) 0.04 x10^3/uL (0-0.1); BASOPHILS % (AUTO) 1 % (0-1); EOSINOPHILS # (AUTO) 0.17 x10^3/uL (0-0.4); EOSINOPHILS % (AUTO) 2 % (1-7); LYMPHOCYTES # (AUTO) 1.04 x10^3/uL (1-3.4); LYMPHOCYTES % (AUTO) 13 % (22-44); MD NO; MEAN CORPUSCULAR HEMOGLOBIN 31.6 pg (27.0-34.8); MEAN CORPUSCULAR HGB CONC 33.4 g/dL (32.4-35.8); MEAN CORPUSCULAR VOLUME 94.7 fL (80-100); MEAN PLATELET VOLUME 7.7 fL (7.4-10.4); MONOCYTES # (AUTO) 0.86 x10^3/uL (0.2-0.8); MONOCYTES % (AUTO) 11 % (2-9); NEUTROPHILS # (AUTO) 6.05 x10^3/uL (1.8-6.8); NEUTROPHILS % (AUTO) 74 % (42-75); PLATELET COUNT 396 x10^3/uL (130-400); RED BLOOD COUNT 3.71 x10^6/uL (3.82-5.3)
[2017-12-19] MEDS: ENOXAPARIN 30 MG/0.3 ML SQ SCH (06:00)
[2017-12-19] MEDS: CARVEDILOL 3.125 MG TABLET PO SCH ×2 (06:00→18:07)
[2017-12-19] MEDS: LEVOTHYROXINE 100 MCG TABLET PO SCH (06:00)
[2017-12-19 06:03] LABS: ANION GAP 8 mmol/L (5-15); CALCIUM 8.6 mg/dL (8.5-10.1); CHLORIDE 104 mmol/L (98-107); CREATININE 0.73 mg/dL (0.55-1.02)
[2017-12-19] MEDS: TEMPLATE NON-FORMULARY MED. (Escitalopram Oxalate** 20 MG) HOMEMEDPO SCH (09:00)
[2017-12-19] MEDS: SENNA/DOCUSATE TABLET PO SCH (09:00)
[2017-12-19] MEDS: FLUTICASONE/VILANTEROL 100-25MCG/INH INH SCH (09:22)
[2017-12-19] MEDS: FAMOTIDINE 20 MG TABLET PO SCH ×2 (09:22→21:06)
[2017-12-19] MEDS: RANOLAZINE 500 MG TAB.ER.12H PO SCH (09:22)
[2017-12-19] MEDS: BENAZEPRIL 20 MG TABLET PO SCH (09:23)
[2017-12-19] MEDS: ISOSORBIDE MONONITRATE ER 30 MG TABLET PO SCH (09:23)
[2017-12-19] MEDS: MAGNESIUM OXIDE 400 MG TABLET PO SCH ×2 (09:23→21:06)
[2017-12-19] MEDS: CLOPIDOGREL 75 MG TABLET PO SCH (09:23)
[2017-12-19] MEDS: ROPINIROLE 0.5MG TABLET PO SCH ×2 (12:11→21:06)
[2017-12-19] MEDS ORDERED: SODIUM CHLORIDE 0.9% 1,000ML IVBOLUS ONE (14:00)
[2017-12-19] MEDS: FLUTICASONE NASAL SPRAY 16GM NAS SCH (21:06)
[2017-12-19] MEDS: SIMVASTATIN 20 MG TABLET PO SCH (21:06)
[2017-12-19] MEDS: BELSOMRA 10 MG HOMEMEDPO SCH (22:00)
[2017-12-20] VITALS (7 sets, daily range): BP systolic 109–148; BP diastolic 60–80
[2017-12-20] MEDS: CARVEDILOL 3.125 MG TABLET PO SCH (05:56)
[2017-12-20] MEDS: ENOXAPARIN 30 MG/0.3 ML SQ SCH (05:56)
[2017-12-20] MEDS: LEVOTHYROXINE 100 MCG TABLET PO SCH (05:56)
[2017-12-20] MEDS ORDERED: SODIUM CHLORIDE 0.9%, 500ML IVBOLUS ONE (08:30)
[2017-12-20] MEDS: RANOLAZINE 500 MG TAB.ER.12H PO SCH (08:35)
[2017-12-20] MEDS: MAGNESIUM OXIDE 400 MG TABLET PO SCH (08:35)
[2017-12-20] MEDS: BENAZEPRIL 20 MG TABLET PO SCH (08:35)
[2017-12-20] MEDS: FAMOTIDINE 20 MG TABLET PO SCH (08:35)
[2017-12-20] MEDS: ISOSORBIDE MONONITRATE ER 30 MG TABLET PO SCH (08:35)
[2017-12-20] MEDS: CLOPIDOGREL 75 MG TABLET PO SCH (08:35)
[2017-12-20] MEDS: TEMPLATE NON-FORMULARY MED. (Escitalopram Oxalate** 20 MG) HOMEMEDPO SCH (08:36)
[2017-12-20] MEDS: SENNA/DOCUSATE TABLET PO SCH (08:36)
[2017-12-20] MEDS: FLUTICASONE/VILANTEROL 100-25MCG/INH INH SCH (08:41)
[2017-12-20] MEDS ORDERED: CEFD300C37 PO (11:15)
[2017-12-20] MEDS: ROPINIROLE 0.5MG TABLET PO SCH (11:36)
== END 2017-12-20 12:10 | disposition home or self-care (01) ==
LOC: ED 22:32 → INTOOBSV 23:36 → EDIP 23:36 → SUATTDRO 23:37 → 4EST 12-18 00:59 → DCLOUNGE 12-20 11:55
PROVIDERS: ADMIT Family Medicine; ATTEND Family Medicine
DX: G90.9 Disorder of the autonomic nervous system, unspecified (principal); R55 Syncope and collapse; B96.20 Unspecified Escherichia coli [E. coli] as the cause of diseases classified elsewhere; E03.9 Hypothyroidism, unspecified; E78.5 Hyperlipidemia, unspecified; E86.0 Dehydration; E87.1 Hypo-osmolality and hyponatremia; G25.81 Restless legs syndrome; G47.30 Sleep apnea, unspecified; I25.10 Atherosclerotic heart disease of native coronary artery without angina pectoris; I27.20 Pulmonary hypertension, unspecified; I11.9 Hypertensive heart disease without heart failure; I44.7 Left bundle-branch block, unspecified; I95.1 Orthostatic hypotension; J44.9 Chronic obstructive pulmonary disease, unspecified; J98.11 Atelectasis; K21.9 Gastro-esophageal reflux disease without esophagitis; N17.0 Acute kidney failure with tubular necrosis; N39.0 Urinary tract infection, site not specified; Z82.49 Family history of ischemic heart disease and other diseases of the circulatory system; Z90.49 Acquired absence of other specified parts of digestive tract; Z90.710 Acquired absence of both cervix and uterus; Z95.5 Presence of coronary angioplasty implant and graft; Z96.653 Presence of artificial knee joint, bilateral; Z88.8 Allergy status to other drugs, medicaments and biological substances; Z88.2 Allergy status to sulfonamides
CPT/HCPCS: 36415; 71045; 71275; 80048; 80053; 81001; 82607; 82746; 84443; 84484; 85025; 87077; 87086; 87186; 93005; 93880; 96360; 96361; 96372; 97112; 97162; 97166; 97530; 97535; 99285; G0378; J1650; J7030; J7040; Q9967

== ENCOUNTER → 2017-12-17 | Outpatient (CLI) | payer MEDICARE ==
[~2017-12-17] MED LIST changes: +CEFD300C37 PO
== END | disposition home or self-care (01) ==
LOC: CVU 15:39
PROVIDERS: ATTEND Internal Medicine Cardiovascular Disease
DX: I07.1 Rheumatic tricuspid insufficiency (principal); I10 Essential (primary) hypertension; E78.5 Hyperlipidemia, unspecified
CPT/HCPCS: 93308; 93321; 93325

== ENCOUNTER 2019-12-20 17:11 | Emergency (ER) | payer MEDICARE ==
[~2019-12-20] VITALS: Ht 157.5 cm; Wt 91.8 kg
[~2019-12-20 17:11] MED LIST changes: +AMLO-150 PO; -AMLO5TAB7 PO; +CEFD300C37 PO; -FLUT16SP NS; +FLUT16SP24 NS; -MAGN400T7 PO; +MAGN400T9 PO; -NITR0.4T SL; +NITR0.4T41 SL; -PANT40TA5 PO; +PANT40TA6 PO; -ROPI0.5T2 PO; +ROPI0.5T4 PO; -ROPI2TAB4 PO; +ROPI2TAB8 PO; +SIMV20TA19 PO; -SIMV20TA3 PO
[2019-12-20 17:14] VITALS: BP 163/62
--- NOTE | 2019-12-20 17:33 | NUR ---
TASK RN: PT WITH GROUND LEVEL FALL TODAY AROUND 1300, PT FELL ON FACE, NOW WITH NECK PAIN AND HAWKINS. DENIES N/V. PT DENIES LOC. C COLAR PLACED IN TRIAGE. PT TO ALL MONITORS, ERP IN TO EVAL PT
[2019-12-20] MEDS ORDERED: ACETAMINOPHEN 500 MG TABLET ONE (17:39)
[2019-12-20] MEDS ORDERED: ACETAMINOPHEN 500 MG TABLET PO ONE (18:00)
--- NOTE | 2019-12-20 18:50 | NUR ---
BACK FROM RADIOLOGY. REMAINS IN RIGID COLLAR. NO NUMBNESS OR TINGLING.
--- NOTE | 2019-12-20 19:13 | NUR ---
ORDERED MANAS CHO.
--- NOTE | 2019-12-20 19:57 | NUR ---
VISTA COLLAR APPLIED, DETAILED INSTRUCT TO RE: INSTRUCT OF COLLAR. PT TO WEAR UNTIL SEES NEURO. SPONGE BATH ONLY. CAREFUL WITH OPIATE, TO BE BY HER SIDE IF SHE TAKES 1/2 TO [place]. AND PT AGREE TO COMPLY. NO NUMBNESS TINGLING IN EXT. VSS. PT TO RETURN IF ANY FOCAL WEAKNESS, NUMBNESS TINGLING. DR RUGGIERO APPROVED FINAL FITTING OF VISTA COLLAR.
== END 2019-12-20 20:02 | disposition home or self-care (01) ==
LOC: ED 17:33
DX: S12.100A Unspecified displaced fracture of second cervical vertebra, initial encounter for closed fracture (principal); R51.9 Headache, unspecified; R94.31 Abnormal electrocardiogram [ECG] [EKG]; I10 Essential (primary) hypertension; E78.5 Hyperlipidemia, unspecified; I25.10 Atherosclerotic heart disease of native coronary artery without angina pectoris; J44.9 Chronic obstructive pulmonary disease, unspecified; K21.9 Gastro-esophageal reflux disease without esophagitis; E03.9 Hypothyroidism, unspecified; Z90.89 Acquired absence of other organs; Z90.710 Acquired absence of both cervix and uterus; Z90.49 Acquired absence of other specified parts of digestive tract; W18.30XA Fall on same level, unspecified, initial encounter; Y93.89 Activity, other specified; Y92.009 Unspecified place in unspecified non-institutional (private) residence as the place of occurrence of the external cause; Y99.8 Other external cause status
CPT/HCPCS: 70450; 70486; 72125; 93005; 99285

== ENCOUNTER 2020-04-05 08:16 | Emergency (ER) | payer MEDICARE ==
[~2020-04-05] VITALS: Ht 162.6 cm; Wt 80.0 kg
[~2020-04-05 08:16] MED LIST changes: -ESCI20TA PO; +ESCI20TA5 PO
--- NOTE | 2020-04-05 08:50 | NUR ---
BIB BY [facility] FOR HEADACHE/NAUSEA/SOB/CHEST PAIN UPON WAKING ON ARRIVAL ECG OBTAINED, PLACED ON ON SIZER HAND PATIENT OF [facility] (STENTS) NO PLAVIX OF [facility]SA TODAY
--- NOTE | 2020-04-05 09:25 | NUR ---
LAB AT BEDSIDE
[2020-04-05 09:46] LABS: BASOPHILS % (AUTO) 1 % (0-1); EOSINOPHILS % (AUTO) 3 % (1-7); LYMPHOCYTES % (AUTO) 15 % (22-44); MEAN CORPUSCULAR HEMOGLOBIN 32.2 pg (27.0-34.8); MEAN CORPUSCULAR HGB CONC 33.8 g/dL (32.4-35.8); MEAN PLATELET VOLUME 7.5 fL (7.4-10.4); MONOCYTES % (AUTO) 10 % (2-9); NEUTROPHILS % (AUTO) 72 % (42-75); PLATELET COUNT 284 x10^3/uL (130-400); RED CELL DISTRIBUTION WIDTH 13.4 % (9.6-15.2)
[2020-04-05 09:49] LABS: MD NO
[2020-04-05 09:56] LABS: ALBUMIN 3.7 g/dL (3.4-5.0); ANION GAP 6 mmol/L (5-15); CALCIUM 9.5 mg/dL (8.5-10.1); CHLORIDE 103 mmol/L (98-107)
[2020-04-05 09:57] LABS: CREATININE 0.82 mg/dL (0.55-1.02)
[2020-04-05 09:59] VITALS: BP 153/59
--- NOTE | 2020-04-05 10:00 | NUR ---
CXR AT BEDSIDE WITH REASSESSMENT HAND TINGLING/SOB IMPROVED
== END 2020-04-05 10:53 | disposition home or self-care (01) ==
LOC: ED 09:08
DX: G44.209 Tension-type headache, unspecified, not intractable (principal); R20.2 Paresthesia of skin; R06.02 Shortness of breath; I10 Essential (primary) hypertension; E03.9 Hypothyroidism, unspecified; I44.7 Left bundle-branch block, unspecified; J44.9 Chronic obstructive pulmonary disease, unspecified
CPT/HCPCS: 36415; 70450; 71045; 80048; 82040; 85025; 93005; 99285